=== PATIENT | female | born 1950 | race Asian ===

== ENCOUNTER 2024-04-04 12:53 | Emergency (ER) | payer MEDICARE, OTHER ==
[~2024-04-04] VITALS: Ht 160 cm; Wt 63.6 kg
[2024-04-04 12:57] VITALS: TEMP 97.8
[2024-04-04] MEDS ORDERED: SIMV-259 PO (13:02)
[2024-04-04] MEDS: PB/HYOSCY/ATR/SCOP/LIDO/MAALOX 55 ML BOTTLE PO ONE (14:29)
[2024-04-04 15:43] VITALS: BP 148/94; PULSE 70; RESP 16; O2SAT 98
== END 2024-04-04 16:20 | disposition home or self-care (01) ==
LOC: EMS 12:55
DX: T18.9XXA Foreign body of alimentary tract, part unspecified, initial encounter (principal); E78.00 Pure hypercholesterolemia, unspecified; E03.9 Hypothyroidism, unspecified; W44.8XXA Other foreign body entering into or through a natural orifice, initial encounter; Y93.89 Activity, other specified; Y92.89 Other specified places as the place of occurrence of the external cause; Y99.8 Other external cause status
CPT/HCPCS: 70490; 71046; 99284